=== PATIENT | male | born 1935 | race Caucasian/White ===

== ENCOUNTER 2017-06-08 18:05 | Inpatient (IN) | payer OTHER ==
--- NOTE | 2017-06-08 18:12 | PDOC ---
History of Present Illness - General Stated Complaint: RECTAL BLEEDING Time Seen by Provider: 06/08/17 18:11 - History of Present Illness Initial Comments: 06/08/17 18:30 Mr. 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 He says the first was diarrhea with some blood mixed in but the second was "like someone turned on the faucet" of bright red blood. Mr. Vincent has no other complaints but says he wanted to get checked out. The patient denies chest pain, shortness of breath, headache and dizziness. Denies fever, chills, nausea, vomit, diarrhea and constipation. Denies dysuria, frequency, urgency and hematuria. Allergies: NKDA Past History - Past Medical History Allergies/Adverse Reactions: Allergies Allergy/AdvReac Type Severity Reaction Status Date / Time No Known Allergies Allergy Verified 06/08/17 19:22 Home Medications: Ambulatory Orders Aspirin/Dipyridamole [Aggrenox -] 1 combo PO BID 06/08/17 Atorvastatin Ca [Lipitor] 10 mg PO HS 06/08/17 Ramipril 5 mg PO DAILY 06/08/17 Review of Systems - Review of Systems Comments:: 06/08/17 18:44 GENERAL/CONSTITUTIONAL: No fever or chills. No weakness. HEAD, EYES, EARS, NOSE AND THROAT: No change in vision. No ear pain or discharge. No sore throat. CARDIOVASCULAR: No chest pain or shortness of breath RESPIRATORY: No cough, wheezing, or hemoptysis. GASTROINTESTINAL: +Diarrhea as described with kari blood noted in toilet and upon wiping. GENITOURINARY: No dysuria, frequency, or change in urination. MUSCULOSKELETAL: No joint or muscle swelling or pain. No neck or back pain. SKIN: No rash NEUROLOGIC: No headache, vertigo, loss of consciousness, or change in strength/ sensation. ENDOCRINE: No increased thirst. No abnormal weight change HEMATOLOGIC/LYMPHATIC: No anemia, easy bleeding, or history of blood clots. ALLERGIC/IMMUNOLOGIC: No hives or skin allergy. *Physical Exam - Physical Exam Comments: 06/08/17 18:44 GENERAL: Awake, alert, and fully oriented, in no acute distress HEAD: No signs of trauma, normocephalic, atraumatic EYES: PERRLA, EOMI, sclera anicteric, conjunctiva clear ENT: Auricles normal inspection, hearing grossly normal, nares patent, oropharynx clear without exudates. Moist mucosa NECK: Normal ROM, supple, no lymphadenopathy, JVD, or masses LUNGS: No distress, speaks full sentences, clear to auscultation bilaterally HEART: Regular rate and rhythm, normal S1 and S2, no murmurs, rubs or gallops, peripheral pulses normal and equal bilaterally. ABDOMEN: Soft, nontender, normoactive bowel sounds. No guarding, no rebound. No masses EXTREMITIES: Normal inspection, Normal range of motion, no edema. No clubbing or cyanosis. NEUROLOGICAL: Cranial nerves II through XII grossly intact. Normal speech, normal gait, no focal sensorimotor deficits SKIN: Warm, Dry, normal turgor, no rashes or lesions noted. RECTAL: +Bright red blood noted on glove after exam. No tenderness or hemorrhoids appreciated. Good rectal tone. ED Treatment Course - LABORATORY CBC & Chemistry Diagram: 06/09/17 19:05 06/09/17 07:00 Medical Decision Making - Medical Decision Making 06/08/17 18:46 Mr. Vincent presents w/ symptoms concerning for GI bleed. Labs sent to evaluate accordingly. Patient signed out to Dr. Green for further care. *DC/Admit/Observation/Transfer Diagnosis at time of Disposition: Rectal bleed - Discharge Dispostion Condition at time of disposition: Guarded Admit: Yes - Referrals - Patient Instructions - Post Discharge Activity
[2017-06-08 18:18] VITALS: BMI 29.2
--- NOTE | 2017-06-08 18:29 | PDOC ---
Attending Attestation - Resident Resident Name: Yan Jose - ED Attending Attestation I have performed the following: I have examined & evaluated the patient, The case was reviewed & discussed with the resident, I agree w/resident's findings & plan, Exceptions are as noted - HPI HPI: 06/08/17 18:35 81y M hx of htn, hl, cva on aggrenox presents with 2 episodes of BM with kari blood. No abdominal pain, n/v, f/c, cp, sob, jefferson. no prior episodes of rectal bleeding. last colonscopy >10 yrs ago on exam vitals noted for mild tachycardia abd soft nontender rectal exam noted for red blood that is guaiac positive, no noted hemorroids differential includes diverticular bleeding, LGIB, consider briskg GIB, however pt without hx of ulcers, no risk factors - Physicial Exam PE: 06/15/17 16:40 see above - Medical Decision Making 06/09/17 00:26 pt had a large bloody bm here vitals the same awaiting CT, suspect diverticular bleed will admit for further management due to persistent GIB and being on a/c 06/09/17 01:07 ct cw diverticlosis will admit for further management PMD is dr theodore. will admit to hospitalist service as they are covering [place] 06/09/17 01:[address] lynn agree with admission pending repeat cbc - if crit drops significantly or pts vitals unstable consider ICU admission - otherwis stable for med/surg Heart Score/ECG Review - ECG Impressions Comment:: 06/09/17 01:33 Twelve-lead EKG was performed and reviewed by me. There is normal sinus rhythm with a normal rate. Rate is 78 Left axis deviation First degree AV block
[2017-06-08 19:05] LABS: BASO % 0.5 % (0-2.0); EOS % 1.3 % (0-4.5); HEMATOCRIT 39.6 % (35.4-49); HEMOGLOBIN 13.3 GM/dL (11.7-16.9); LYMPH % 21.4 % (8-40); MCH 32.9 pg (25.7-33.7); MCHC 33.6 g/dl (32.0-35.9); MEAN PLT VOLUME 8.3 fl (7.5-11.1); NEUT % 69.8 % (42.8-82.8); PLATELET COUNT 168 K/MM3 (134-434); RBC 4.04 M/mm3 (4.00-5.60); WHITE BLOOD COUNT 7.7 K/mm3 (4.0-10.0)
[2017-06-08] MEDS ORDERED: ONDANSETRON 4 MG/2 ML VIAL IVPUSH ONE (19:12)
[2017-06-08 19:16] LABS: INR 0.99 (0.82-1.09); PROTHROMBIN TIME (PATIENT) 11.2 SEC (9.98-11.88)
[2017-06-08 19:19] LABS: ACTIVATED PTT 27.3 SECONDS (26.9-34.4)
[2017-06-08 19:27] LABS: ALBUMIN 3.7 g/dl (3.4-5.0); ALK PHOS 93 U/L (45-117); ANION GAP 5 (8-16); BILIRUBIN,TOTAL 0.4 mg/dL (0.2-1.0); BLOOD UREA NITROGEN 27 mg/dL (7-18); CALCIUM 8.4 mg/dL (8.5-10.1); CHLORIDE 109 mmol/L (98-107); CO2 25 mmol/L (21-32); CREATININE 1.1 mg/dL (0.7-1.3); GLUCOSE,RANDOM 169 mg/dL (74-106); POTASSIUM 4.7 mmol/L (3.5-5.1); SGOT/AST 11 U/L (15-37); SGPT/ALT 21 U/L (12-78); SODIUM 139 mmol/L (136-145); TOT PROT 6.3 g/dl (6.4-8.2)
--- NOTE | 2017-06-08 23:54 | PDOC ---
*Physical Exam - Vital Signs Last Vital Signs Temp Pulse Resp BP Pulse Ox 98.3 F 74 18 115/74 97 06/08/17 18:15 06/08/17 22:04 06/08/17 22:04 06/08/17 22:04 06/08/17 19:46 <Sandra Green - Last Filed: 06/08/17 23:52> - Vital Signs Last Vital Signs Temp Pulse Resp BP Pulse Ox 98.3 F 74 18 115/74 97 06/08/17 18:15 06/08/17 22:04 06/08/17 22:04 06/08/17 22:04 06/08/17 19:46 <Lauri Kennedy - Last Filed: 06/09/17 01:17> ED Treatment Course - LABORATORY CBC & Chemistry Diagram: 06/08/17 18:55 06/08/17 18:55 - ADDITIONAL ORDERS Additional order review: Laboratory Results 06/08/17 06/08/17 06/08/17 18:55 18:55 18:55 PT with INR 11.20 INR 0.99 PTT (Actin FS) 27.3 Sodium 139 Potassium 4.7 Chloride 109 H Carbon Dioxide 25 Anion Gap 5 L BUN 27 H Creatinine 1.1 Creat Clearance w eGFR > 60 Random Glucose 169 H Calcium 8.4 L Total Bilirubin 0.4 AST 11 L ALT 21 Alkaline Phosphatase 93 Total Protein 6.3 L Albumin 3.7 Stool Occult Blood Blood Type O POSITIVE Antibody Screen Negative 06/08/17 18:29 PT with INR INR PTT (Actin FS) Sodium Potassium Chloride Carbon Dioxide Anion Gap BUN Creatinine Creat Clearance w eGFR Random Glucose Calcium Total Bilirubin AST ALT Alkaline Phosphatase Total Protein Albumin Stool Occult Blood Positive Blood Type Antibody Screen 06/08/17 18:55 RBC 4.04 MCV 98.0 H MCHC 33.6 RDW 13.0 MPV 8.3 Neutrophils % 69.8 Lymphocytes % 21.4 Monocytes % 7.0 Eosinophils % 1.3 Basophils % 0.5 - RADIOLOGY Radiology Studies Ordered: Category Date Time Status ABDOMEN & PELVIS CT WITH CONTR [CT] Stat CT Scan 06/08/17 19:46 Ordered - Medications Given in the ED: ED Medications Discontinued Medications Generic Name Dose Route Start Last Admin Trade Name Freq PRN Reason Stop Dose Admin Ondansetron HCl 4 mg 06/08/17 19:12 06/08/17 19:21 Zofran Injection IVPUSH 06/08/17 19:13 4 mg ONCE ONE Administration <Sandra Green - Last Filed: 06/08/17 23:52> - LABORATORY CBC & Chemistry Diagram: 06/08/17 18:55 06/08/17 18:55 - ADDITIONAL ORDERS Additional order review: Laboratory Results 06/08/17 06/08/17 06/08/17 18:55 18:55 18:55 PT with INR 11.20 INR 0.99 PTT (Actin FS) 27.3 Sodium 139 Potassium 4.7 Chloride 109 H Carbon Dioxide 25 Anion Gap 5 L BUN 27 H Creatinine 1.1 Creat Clearance w eGFR > 60 Random Glucose 169 H Calcium 8.4 L Total Bilirubin 0.4 AST 11 L ALT 21 Alkaline Phosphatase 93 Total Protein 6.3 L Albumin 3.7 Stool Occult Blood Blood Type O POSITIVE Antibody Screen Negative 06/08/17 18:29 PT with INR INR PTT (Actin FS) Sodium Potassium Chloride Carbon Dioxide Anion Gap BUN Creatinine Creat Clearance w eGFR Random Glucose Calcium Total Bilirubin AST ALT Alkaline Phosphatase Total Protein Albumin Stool Occult Blood Positive Blood Type Antibody Screen 06/09/17 06/08/17 00:30 18:55 RBC Cancelled 4.04 MCV Cancelled 98.0 H MCHC Cancelled 33.6 RDW Cancelled 13.0 MPV Cancelled 8.3 Neutrophils % Cancelled 69.8 Lymphocytes % Cancelled 21.4 Monocytes % Cancelled 7.0 Eosinophils % Cancelled 1.3 Basophils % Cancelled 0.5 - Medications Given in the ED: ED Medications Discontinued Medications Generic Name Dose Route Start Last Admin Trade Name Freq PRN Reason Stop Dose Admin Ondansetron HCl 4 mg 06/08/17 19:12 06/08/17 19:21 Zofran Injection IVPUSH 06/08/17 19:13 4 mg ONCE ONE Administration <Lauri Kennedy - Last Filed: 06/09/17 01:17> Medical Decision Making - Medical Decision Making Patient signed out to me in stable condition. Had another episode of kari bloody bowel movement. Will repeat CBC and get a CT abdomen pelvis with rectal, po, and IV conrast to evaluate for diverticulitis/ diverticulosis. Patient signed out to Dr. Kennedy in stable condition with VSS. 06/08/17 23:52 <Sandra Green - Last Filed: 06/08/17 23:52> *DC/Admit/Observation/Transfer <Sandra Green - Last Filed: 06/08/17 23:52> - Discharge Dispostion Admit: Yes <Lauri Kennedy - Last Filed: 06/09/17 01:17> Diagnosis at time of Disposition: Rectal bleed - Discharge Dispostion Condition at time of disposition: Guarded - Referrals Referrals: Antonio Johnson MD [Primary Care Provider] - - Patient Instructions - Post Discharge Activity
[2017-06-09 01:37] LABS: BASO % 0.2 % (0-2.0); EOS % 0.2 % (0-4.5); HEMATOCRIT 36.3 % (35.4-49); HEMOGLOBIN 12.3 GM/dL (11.7-16.9); LYMPH % 20.5 % (8-40); MCH 32.9 pg (25.7-33.7); MEAN CELL VOLUME 96.8 fl (80-96); MONO % 8.2 % (3.8-10.2); NEUT % 70.9 % (42.8-82.8); PLATELET COUNT 156 K/MM3 (134-434); RBC 3.75 M/mm3 (4.00-5.60); RDW 12.7 % (11.9-15.9); WHITE BLOOD COUNT 7.7 K/mm3 (4.0-10.0)
[2017-06-09] MEDS ORDERED: ACETAMINOPHEN 325 MG TABLET (FP) PO ONE (01:40)
[2017-06-09] MEDS ORDERED: ONDANSETRON 4 MG/2 ML VIAL IVPB PRN (01:40)
--- NOTE | 2017-06-09 01:41 | HP ---
Admitting History and Physical - Admission Chief Complaint: GIB History of Present Illness: 81 yo male w/ pmh of HTN, HLD, and prior TIA/strokes (3, last in 2006 - minimal left sided deficit with slightly decreased dexterity of hand) currently on Aggrenox who presents c/o 2 episodes of kari bloody diarrhea at around 1730 today. he He reports having a total of 3 BRBPR. 1 episode in the ER and 2 at home. he denies tarry stools at home. he states hx of small non-bleeding hemorrhoid in the past. he reports last colonoscopy/endoscopy in 2005 with 2 polyps removed, diverticulitis and gastritis. he denies sob, CP, heart palps, nausea, vomiting, diarrhea, fevers, chills PMH/PSH-HTN, HLD, basal cell cancer s/p removal, and prior TIA/strokes (3, last in 2006 - minimal left sided deficit with slightly decreased dexterity of hand) Social- Former smoker. Denies recreational drug use famx-MI PCP- dr. Johnson Ros neg except for HPI Pex General- in no acute distress, alert Hent- at/nc, alisa, neck supple, trachea midline Resp- lungs ctab, no cough, no ronchi, no rales Cards- s1s2 heard, no JVD, RRR GI- Non-tender, no guarding, no rebound, no rigidity, BS + Musk- normal arom bue/ble, no back pain Skin- no erythema Neuro- cn2-12grossly intact, no facial droop, eomi Psych- cooperative,no agitation Prob list GIB HTN HLp hx of TIA with minimal left side deficit A/P- 81 yo male w/ pmh of HTN, HLD, and prior TIA/strokes (3, last in 2006 - minimal left sided deficit with slightly decreased dexterity of hand) currently on Aggrenox who presents c/o 2 episodes of kari bloody diarrhea at around 1730 today and found to have diverticulosis... 1. GIB on Aggrenox- CTAP shows mild sigmoid diverticulosis w/out diverticulitis. H/H stable. IV PPI, GI consult pending. NPO 2. HTN- Stable. hold B/P meds in setting of GIB 3. Hx of TIA - on Aggrenox. will hold 2/2 GIB 4. HLp- hold statin until able to eat DVT prophys scd, oob, hold chemoprophylaxis 2/2 GIB FEN IVF NS 75cc/hr, NPO Dispo-requires > 2mn stay for GIB History Source: Patient Limitations to Obtaining History: No Limitations - Smoking History Smoking history: Former smoker Have you smoked in the past 12 months: No - Alcohol/Substance Use Hx Alcohol Use: No Home Medications - Allergies Allergies/Adverse Reactions: Allergies Allergy/AdvReac Type Severity Reaction Status Date / Time No Known Allergies Allergy Verified 06/08/17 19:22 - Home Medications Home Medications: Ambulatory Orders Aspirin/Dipyridamole [Aggrenox -] 1 combo PO BID 06/08/17 Atorvastatin Ca [Lipitor] 10 mg PO HS 06/08/17 Ramipril 5 mg PO DAILY 06/08/17 Physical Examination Vital Signs: Vital Signs Temperature 98.3 F 06/08/17 18:15 Pulse Rate 74 06/08/17 22:04 Respiratory Rate 18 06/08/17 22:04 Blood Pressure 115/74 06/08/17 22:04 O2 Sat by Pulse Oximetry (%) 97 06/09/17 01:36 Labs: CBC, BMP 06/08/17 18:55 Visit type - Emergency Visit Emergency Visit: Yes ED Registration Date: 06/09/17 Care time: The patient presented to the Emergency Department on the above date and was hospitalized for further evaluation of their emergent condition. - New Patient This patient is new to me today: Yes Date on this admission: 06/10/17 - Critical Care Critical Care patient: No
[2017-06-09] MEDS ORDERED: PANTOPRAZOLE SODIUM 40 MG/100 ML BAG IVPB ONE (01:54)
[2017-06-09] MEDS: PANTOPRAZOLE SODIUM 40 MG VIAL IVPUSH SCH ×3 (02:02→22:09)
[2017-06-09] MEDS: SODIUM CHLORIDE 1,000 ML IV SCH ×3 (02:02→16:50)
[2017-06-09 07:29] LABS: BASO % 0.5 % (0-2.0); EOS % 0.6 % (0-4.5); HEMATOCRIT 33.1 % (35.4-49); HEMOGLOBIN 11.2 GM/dL (11.7-16.9); MCH 33.1 pg (25.7-33.7); MCHC 33.9 g/dl (32.0-35.9); MEAN CELL VOLUME 97.7 fl (80-96); MONO % 9.5 % (3.8-10.2); NEUT % 58.4 % (42.8-82.8); PLATELET COUNT 142 K/MM3 (134-434); RBC 3.39 M/mm3 (4.00-5.60); RDW 12.7 % (11.9-15.9)
[2017-06-09 07:39] LABS: INR 1.12 (0.82-1.09); PROTHROMBIN TIME (PATIENT) 12.6 SEC (9.98-11.88)
[2017-06-09 07:50] LABS: ALBUMIN 3.2 g/dl (3.4-5.0); ALK PHOS 60 U/L (45-117); ANION GAP 8 (8-16); BILIRUBIN,TOTAL 0.7 mg/dL (0.2-1.0); BLOOD UREA NITROGEN 19 mg/dL (7-18); CALCIUM 8.5 mg/dL (8.5-10.1); CHLORIDE 108 mmol/L (98-107); CO2 25 mmol/L (21-32); GLUCOSE,RANDOM 126 mg/dL (74-106); POTASSIUM 4.1 mmol/L (3.5-5.1); SGOT/AST 11 U/L (15-37); SGPT/ALT 17 U/L (12-78); SODIUM 141 mmol/L (136-145); TOT PROT 5.3 g/dl (6.4-8.2)
--- NOTE | 2017-06-09 08:47 | EKG ---
Test Reason : Blood Pressure : / mmHG Vent. Rate : 078 BPM Atrial Rate : 078 BPM P-R Int : 214 ms QRS Dur : 098 ms QT Int : 408 ms P-R-T Axes : 011 -43 023 degrees QTc Int : 465 ms SINUS RHYTHM WITH 1ST DEGREE A-V BLOCK LEFT AXIS DEVIATION ABNORMAL ECG WHEN COMPARED WITH ECG OF 01-MAY-2010 15:34, ST NOW DEPRESSED IN ANTERIOR LEADS Confirmed by OCTAVIANO GREGORY, ALISE ([id number]) on 06/09/2017 8:47:24 AM Referred By: Confirmed By:ALISE BRUMFIELD MD
--- NOTE | 2017-06-09 14:56 | CON.GI ---
Consult Consult Specialty:: GI - History of Present Illness History of Present Illness: Covering for Dr. Lancaster until Saturday morning Chart reviewed. An 81 yom with acute onset of hematochezia, with lower abdominal cramping pain w /o nausea, vomiting, fever, chills. No prior episodes of the same. Colonoscopy in 2005 revealed 2 "non-cancerous" polyps, per patient. A CT scan of the abdomen /pelvis w/c on admission revealed sigmoid diverticulosis, no acute findings in abdomen, or pelvis otherwise. The patient had witnessed dark-colored bloody diarrhea this am. Asymptomatic and comfortable at the time of this encounter. - History Source History Provided By: Patient Limitations to Obtaining History: No Limitations - Alcohol/Substance Use Hx Alcohol Use: No - Smoking History Smoking history: Former smoker Have you smoked in the past 12 months: No Aproximately how many cigarettes per day: 10 If you are a former smoker, when did you quit?: 50 years ago Home Medications - Allergies Allergies/Adverse Reactions: Allergies Allergy/AdvReac Type Severity Reaction Status Date / Time No Known Allergies Allergy Verified 06/08/17 19:22 - Home Medications Home Medications: Ambulatory Orders Aspirin/Dipyridamole [Aggrenox -] 1 combo PO BID 06/08/17 Atorvastatin Ca [Lipitor] 10 mg PO HS 06/08/17 Ramipril 5 mg PO DAILY 06/08/17 Family Disease History - Family Disease History Family History: Unremarkable (non-contributing) Review of Systems Findings/Remarks: please refer to H&P Physical Exam-GI Vital Signs: Vital Signs Temperature 98.7 F 06/09/17 09:47 Pulse Rate 103 H 06/09/17 14:34 Respiratory Rate 24 06/09/17 14:34 Blood Pressure 129/59 06/09/17 14:34 O2 Sat by Pulse Oximetry (%) 96 06/09/17 03:35 Constitutional: Yes: Well Nourished, No Distress, Calm Eyes: Yes: Conjunctiva Clear HENT: Yes: Atraumatic Neck: Yes: Supple Cardiovascular: Yes: Regular Rate and Rhythm Respiratory: Yes: Regular Gastrointestinal Inspection: No: Ascites, Distention ...Auscultate: Yes: Normoactive Bowel Sounds ...Palpate: Yes: Soft. No: Firm/Rigid, Guarding, Mass, Pulsatile Mass, Tenderness, Tenderness, Epigastium, Tenderness, Rebound ...Percussion: No: Fluid Wave ...Rectal Exam: Yes: Other (bloody stools) Neurological: Yes: Alert, Oriented Labs: CBC, BMP 06/09/17 07:00 06/09/17 07:00 INR, PTT INR 1.12 (0.82-1.09) 06/09/17 07:00 Abnormal Lab Results 06/08/17 06/08/17 06/09/17 18:55 18:55 01:30 RBC 3.75 L Hgb Hct MCV 98.0 H 96.8 H PT with INR Chloride 109 H Anion Gap 5 L BUN 27 H Random Glucose 169 H Calcium 8.4 L AST 11 L Total Protein 6.3 L Albumin 06/09/17 06/09/17 06/09/17 07:00 07:00 07:00 RBC 3.39 L Hgb 11.2 L Hct 33.1 L MCV 97.7 H PT with INR 12.60 H Chloride 108 H Anion Gap BUN 19 H D Random Glucose 126 H D Calcium AST 11 L Total Protein 5.3 L Albumin 3.2 L Laboratory Results - last 24 hr 06/08/17 06/08/17 06/08/17 18:29 18:55 18:55 WBC 7.7 Corrected WBC (auto) RBC 4.04 Hgb 13.3 Hct 39.6 MCV 98.0 H MCH 32.9 MCHC 33.6 RDW 13.0 Plt Count 168 MPV 8.3 Neutrophils % 69.8 Lymphocytes % 21.4 Monocytes % 7.0 Eosinophils % 1.3 Basophils % 0.5 Platelet Comment PT with INR 11.20 INR 0.99 PTT (Actin FS) 27.3 Sodium Potassium Chloride Carbon Dioxide Anion Gap BUN Creatinine Creat Clearance w eGFR Random Glucose Calcium Total Bilirubin AST ALT Alkaline Phosphatase Total Protein Albumin Stool Occult Blood Positive Blood Type Antibody Screen 06/08/17 06/08/17 06/09/17 18:55 18:55 00:30 WBC Cancelled Corrected WBC (auto) Cancelled RBC Cancelled Hgb Cancelled Hct Cancelled MCV Cancelled MCH Cancelled MCHC Cancelled RDW Cancelled Plt Count Cancelled MPV Cancelled Neutrophils % Cancelled Lymphocytes % Cancelled Monocytes % Cancelled Eosinophils % Cancelled Basophils % Cancelled Platelet Comment Cancelled PT with INR INR PTT (Actin FS) Sodium 139 Potassium 4.7 Chloride 109 H Carbon Dioxide 25 Anion Gap 5 L BUN 27 H Creatinine 1.1 Creat Clearance w eGFR > 60 Random Glucose 169 H Calcium 8.4 L Total Bilirubin 0.4 AST 11 L ALT 21 Alkaline Phosphatase 93 Total Protein 6.3 L Albumin 3.7 Stool Occult Blood Blood Type O POSITIVE Antibody Screen Negative 06/09/17 06/09/17 06/09/17 01:30 01:30 07:00 WBC 7.7 8.0 Corrected WBC (auto) RBC 3.75 L 3.39 L Hgb 12.3 11.2 L Hct 36.3 33.1 L MCV 96.8 H 97.7 H MCH 32.9 33.1 MCHC 34.0 33.9 RDW 12.7 12.7 Plt Count 156 142 MPV 8.0 8.0 Neutrophils % 70.9 58.4 Lymphocytes % 20.5 31.0 D Monocytes % 8.2 9.5 Eosinophils % 0.2 D 0.6 D Basophils % 0.2 0.5 Platelet Comment PT with INR INR PTT (Actin FS) Sodium Potassium Chloride Carbon Dioxide Anion Gap BUN Creatinine Creat Clearance w eGFR Random Glucose Calcium Total Bilirubin AST ALT Alkaline Phosphatase Total Protein Albumin Stool Occult Blood Blood Type O POSITIVE Antibody Screen Negative 06/09/17 06/09/17 07:00 07:00 WBC Corrected WBC (auto) RBC Hgb Hct MCV MCH MCHC RDW Plt Count MPV Neutrophils % Lymphocytes % Monocytes % Eosinophils % Basophils % Platelet Comment PT with INR 12.60 H INR 1.12 PTT (Actin FS) Sodium 141 Potassium 4.1 Chloride 108 H Carbon Dioxide 25 Anion Gap 8 BUN 19 H D Creatinine 1.0 Creat Clearance w eGFR > 60 Random Glucose 126 H D Calcium 8.5 Total Bilirubin 0.7 D AST 11 L ALT 17 Alkaline Phosphatase 60 D Total Protein 5.3 L Albumin 3.2 L Stool Occult Blood Blood Type Antibody Screen Imaging - Results Cat Scan: Report Reviewed Problem List - Problems (1) Hematochezia Code(s): K92.1 - MELENA (2) Diverticulosis Code(s): K57.90 - DVRTCLOS OF INTEST, PART UNSP, W/O PERF OR ABSCESS W/O BLEED Assessment/Plan Diverticular bleed. R/o neoplasm. No hemodynamic issues. Do not suspect upper GI bleeding at this time Close monitoring for worsening bleeding Stop ASA unless obsoletely contraindicated Prep for colonoscopy Discussed with the patient and his daughter at bedside
--- NOTE | 2017-06-09 15:03 | HOSP ---
Subjective - Review of Symptoms Events since last encounter: Summoned by RN Deepa Zacarias. Patient has had three episodes of bleeding from rectum. Dark red blood with clots. Patient became weak and clammy after the last episode and was helped back to bed. Patient states he feels weak. Last colonoscopy 2005. Physical Exam Vitals: BP 124/67 p94 EENT: pale conjunctiva General: pale Neuro: A&Ox3 Pulm: CTA CV: S1, S2, RRR Ext: 2+ pulses, warm, well-perfused, no edema Skin: pale, warm, dry Plan 1. stat cbc 2. continue IV fluids 3. continue to hold aggrenox 4. continue Protonix BID 5. Dr. Tse aware Physical Examination Vital Signs: Vital Signs Temperature 98.7 F 06/09/17 09:47 Pulse Rate 103 H 06/09/17 14:34 Respiratory Rate 24 06/09/17 14:34 Blood Pressure 129/59 06/09/17 14:34 O2 Sat by Pulse Oximetry (%) 96 06/09/17 03:35 Labs: CBC, BMP 06/09/17 07:00 06/09/17 07:00
[2017-06-09] MEDS ORDERED: PEG 3350/NA SULF BICARB CL/KCL 4000 ML SOLN.RECON PO ONE ×2 (15:10→18:00)
[2017-06-09] MEDS ORDERED: BISACODYL 5 MG TABLET.DR (FP) PO ONE (15:10)
[2017-06-09 15:28] LABS: BASO % 0.3 % (0-2.0); EOS % 0.6 % (0-4.5); HEMATOCRIT 29.6 % (35.4-49); HEMOGLOBIN 9.9 GM/dL (11.7-16.9); LYMPH % 17.2 % (8-40); MCH 32.6 pg (25.7-33.7); MCHC 33.5 g/dl (32.0-35.9); MEAN CELL VOLUME 97.4 fl (80-96); MEAN PLT VOLUME 7.8 fl (7.5-11.1); MONO % 7.4 % (3.8-10.2); NEUT % 74.5 % (42.8-82.8); PLATELET COUNT 139 K/MM3 (134-434); RBC 3.04 M/mm3 (4.00-5.60); RDW 12.7 % (11.9-15.9); WHITE BLOOD COUNT 9.8 K/mm3 (4.0-10.0)
[2017-06-09] MEDS: RAMIPRIL 5 MG CAPSULE (FP) PO SCH (15:42)
[2017-06-09] MEDS: ACETAMINOPHEN 325 MG TABLET (FP) PO PRN (16:17)
[2017-06-09 19:21] LABS: HEMATOCRIT 27.3 % (35.4-49); HEMOGLOBIN 9.2 GM/dL (11.7-16.9); MCH 32.8 pg (25.7-33.7); MCHC 33.8 g/dl (32.0-35.9); MEAN CELL VOLUME 97.1 fl (80-96); MEAN PLT VOLUME 8.3 fl (7.5-11.1); PLATELET COUNT 153 K/MM3 (134-434); RBC 2.81 M/mm3 (4.00-5.60); RDW 12.9 % (11.9-15.9); WHITE BLOOD COUNT 9.5 K/mm3 (4.0-10.0)
[2017-06-09] MEDS: ATORVASTATIN CA 10 MG TABLET (FP) PO SCH (22:09)
[2017-06-10] MEDS: SODIUM CHLORIDE 1,000 ML IV SCH ×3 (00:29→18:44)
[2017-06-10] MEDS ORDERED: PT OWN MED DRAWER 7, Y5N ONE (06:13)
[2017-06-10 07:29] LABS: BASO % 0.3 % (0-2.0); HEMATOCRIT 22.3 % (35.4-49); HEMOGLOBIN 7.6 GM/dL (11.7-16.9); LYMPH % 22.8 % (8-40); MCH 33.1 pg (25.7-33.7); MEAN CELL VOLUME 97.4 fl (80-96); MEAN PLT VOLUME 8.5 fl (7.5-11.1); MONO % 7.8 % (3.8-10.2); NEUT % 69.1 % (42.8-82.8); PLATELET COUNT 139 K/MM3 (134-434); RBC 2.29 M/mm3 (4.00-5.60); RDW 12.9 % (11.9-15.9); WHITE BLOOD COUNT 8.2 K/mm3 (4.0-10.0)
[2017-06-10 07:43] LABS: ALBUMIN 2.7 g/dl (3.4-5.0); ALK PHOS 44 U/L (45-117); ANION GAP 5 (8-16); BILIRUBIN,TOTAL 0.5 mg/dL (0.2-1.0); BLOOD UREA NITROGEN 18 mg/dL (7-18); CALCIUM 7.4 mg/dL (8.5-10.1); CHLORIDE 110 mmol/L (98-107); CO2 26 mmol/L (21-32); GLUCOSE,RANDOM 162 mg/dL (74-106); POTASSIUM 4.6 mmol/L (3.5-5.1); SGOT/AST 9 U/L (15-37); SGPT/ALT 15 U/L (12-78); SODIUM 141 mmol/L (136-145); TOT PROT 4.6 g/dl (6.4-8.2)
[2017-06-10] MEDS ORDERED: PROPOFOL 20 ML ONE ×4 (09:54)
--- NOTE | 2017-06-10 10:55 | PN ---
Progress Note (short form) - Note Progress Note: GI Procedure NOte: Please see colonoscopy report. Bleeding is felt to be diverticular and from the distal (left) half of the colon in origin. Multiple polyps removed and endoclipped given recent Aggranox. Hb has dropped below 8. Will transfuse 1 unit PRBCs.
[2017-06-10] MEDS: RAMIPRIL 5 MG CAPSULE (FP) PO SCH (11:54)
[2017-06-10] MEDS: PANTOPRAZOLE SODIUM 40 MG VIAL IVPUSH SCH ×2 (11:55→22:09)
--- NOTE | 2017-06-10 15:05 | PN ---
Progress Note, Physician Chief Complaint: Mr Vincent is without complaint. Denies cp, sob, n/v. s/p colonoscopy. - Current Medication List Current Medications: Active Medications Acetaminophen (Tylenol -) 650 mg PO Q6H PRN PRN Reason: FEVER OR PAIN Last Admin: 06/09/17 16:17 Dose: 650 mg Atorvastatin Calcium (Lipitor -) 10 mg PO HS [facility] Last Admin: 06/09/17 22:09 Dose: 10 mg Sodium Chloride (Normal Saline -) 1,000 mls @ 125 mls/hr IV ASDIR [facility] Last Admin: 06/10/17 06:29 Dose: 125 mls/hr Ondansetron HCl (Zofran Injection) 8 mg IVPB Q6H PRN PRN Reason: NAUSEA Pantoprazole Sodium (Protonix Iv) 40 mg IVPUSH BID [facility] Last Admin: 06/10/17 11:55 Dose: 40 mg Ramipril (Altace -) 5 mg PO DAILY [facility] Last Admin: 06/10/17 11:54 Dose: 5 mg - Objective Vital Signs: Vital Signs Temperature 36.6 C 06/10/17 10:39 Pulse Rate 85 06/10/17 11:55 Respiratory Rate 18 06/10/17 11:12 Blood Pressure 120/94 06/10/17 11:55 O2 Sat by Pulse Oximetry (%) 100 06/10/17 11:12 Constitutional: Yes: No Distress, Calm, Obese Cardiovascular: Yes: Regular Rate and Rhythm. No: Gallop, Murmur, Rub Respiratory: Yes: Regular, CTA Bilaterally. No: Rales, Rhonchi, Wheezes Gastrointestinal: Yes: Normal Bowel Sounds, Soft. No: Distention, Tenderness Extremities: Yes: WNL Edema: No Labs: CBC, BMP 06/10/17 06:10 06/10/17 06:10 INR, PTT INR 1.12 (0.82-1.09) 06/09/17 07:00 Problem List - Problems (1) Hematochezia Assessment/Plan: -appreciate GI assistance -s/p colonoscopy, appears to be diverticular bleed -monitor to see if resolved Code(s): K92.1 - MELENA (2) Anemia Assessment/Plan: -secondary to GI bleed -transfusion ordered -follow up in am Code(s): D64.9 - ANEMIA, UNSPECIFIED Qualifiers: Anemia type: other cause Other causes of anemia: acute posthemorrhagic Qualified Code(s): D62 - Acute posthemorrhagic anemia (3) HTN (hypertension) Assessment/Plan: -controlled -continue altace Code(s): I10 - ESSENTIAL (PRIMARY) HYPERTENSION (4) HLD (hyperlipidemia) Assessment/Plan: -continue statin Code(s): E78.5 - HYPERLIPIDEMIA, UNSPECIFIED (5) TIA (transient ischemic attack) Assessment/Plan: -patient with h/o TIA and on aggrenox -will need GI to comment on when it is safe to restart aggrenox Code(s): G45.9 - TRANSIENT CEREBRAL ISCHEMIC ATTACK, UNSPECIFIED
[2017-06-10 19:26] LABS: BASO % 0.3 % (0-2.0); EOS % 0.6 % (0-4.5); HEMATOCRIT 23.4 % (35.4-49); HEMOGLOBIN 7.8 GM/dL (11.7-16.9); LYMPH % 30.8 % (8-40); MCHC 33.3 g/dl (32.0-35.9); MEAN PLT VOLUME 8.5 fl (7.5-11.1); MONO % 10.6 % (3.8-10.2); NEUT % 57.7 % (42.8-82.8); PLATELET COUNT 145 K/MM3 (134-434); RBC 2.44 M/mm3 (4.00-5.60); RDW 14.2 % (11.9-15.9)
[2017-06-10] MEDS: ACETAMINOPHEN 325 MG TABLET (FP) PO PRN (21:06)
[2017-06-10] MEDS: ATORVASTATIN CA 10 MG TABLET (FP) PO SCH (22:06)
[2017-06-11] MEDS: SODIUM CHLORIDE 1,000 ML IV SCH (02:29)
[2017-06-11 03:21] LABS: BASO % 0.2 % (0-2.0); EOS % 1.1 % (0-4.5); HEMATOCRIT 19.3 % (35.4-49); LYMPH % 24.9 % (8-40); MCH 32.4 pg (25.7-33.7); MEAN CELL VOLUME 95.5 fl (80-96); MEAN PLT VOLUME 8.8 fl (7.5-11.1); MONO % 9.6 % (3.8-10.2); NEUT % 64.2 % (42.8-82.8); PLATELET COUNT 106 K/MM3 (134-434); RBC 2.02 M/mm3 (4.00-5.60); RDW 14.5 % (11.9-15.9); WHITE BLOOD COUNT 8.6 K/mm3 (4.0-10.0)
[2017-06-11 03:26] LABS: HEMOGLOBIN 6.6 GM/dL (11.7-16.9)
[2017-06-11] MEDS: ACETAMINOPHEN 325 MG TABLET (FP) PO PRN (09:29)
[2017-06-11 10:53] LABS: BASO % 0.2 % (0-2.0); EOS % 1.6 % (0-4.5); HEMATOCRIT 21.9 % (35.4-49); HEMOGLOBIN 7.5 GM/dL (11.7-16.9); LYMPH % 22.2 % (8-40); MCH 32.4 pg (25.7-33.7); MCHC 34.2 g/dl (32.0-35.9); MEAN CELL VOLUME 94.6 fl (80-96); MEAN PLT VOLUME 7.8 fl (7.5-11.1); MONO % 10.4 % (3.8-10.2); NEUT % 65.6 % (42.8-82.8); PLATELET COUNT 108 K/MM3 (134-434); RBC 2.31 M/mm3 (4.00-5.60); RDW 14.8 % (11.9-15.9)
[2017-06-11] MEDS: RAMIPRIL 5 MG CAPSULE (FP) PO SCH (11:42)
[2017-06-11] MEDS: PANTOPRAZOLE SODIUM 40 MG VIAL IVPUSH SCH ×2 (11:47→21:34)
--- NOTE | 2017-06-11 11:56 | PATH ---
Surgical Pathology Report Patient Name: RAY ROGEL [facility]. Rec. #: [id number] /Age/Gender: 1935 (Age: 81) / M Account: [id number] Location: [address] [place] [address] Taken: 06/10/2017 Received: 06/10/2017 Reported: 06/11/2017 Physicians: Elham Lancaster M.D. Specimen(s) Received A: BX HEPATIC FLEXURE B: CECAL POLYP C: POLYP SIGMOID Clinical History Preoperative diagnosis: GI bleeding Postoperative diagnosis: Colon polyps, diverticulosis Final Diagnosis A. COLON, HEPATIC FLEXURE, POLYPECTOMY: MULTIPLE PORTIONS OF TUBULAR ADENOMA. B. COLON, CECUM, POLYPECTOMY: COLONIC MUCOSA WITH THERMAL ARTIFACT. C. COLON, SIGMOID, POLYPECTOMY: MULTIPLE PORTIONS OF TUBULAR ADENOMA. Comment: Recommend correlation with clinical findings and follow up as clinically indicated. Electronically Signed Delano Stoddard M.D. Gross Description A. Received in formalin, labeled "hepatic flexure polyp" are 3 richardson, irregular to polypoid portions of soft tissue ranging from 0.3-0.6 cm. in greatest dimension. The specimens are submitted in toto in one cassette. B. Received in formalin, labeled "cecal polyp" is a richardson, irregular portion of soft tissue measuring 0.2 cm. in greatest dimension. The specimen is submitted in toto in one cassette. C. Received in formalin, labeled "sigmoid polyp" are 5 richardson, irregular to polypoid portions of soft tissue ranging from 0.4-0.6 cm. in greatest dimension. The specimens are submitted in toto in one cassette. 06/10/2017 [facility]06/10/2017
--- NOTE | 2017-06-11 15:11 | PN ---
Progress Note, Physician Chief Complaint: Mr Vincent is without complaint. Denies cp, sob, n/v. No bowel movement yet. - Current Medication List Current Medications: Active Medications Acetaminophen (Tylenol -) 650 mg PO Q6H PRN PRN Reason: FEVER OR PAIN Last Admin: 06/11/17 09:29 Dose: 650 mg Atorvastatin Calcium (Lipitor -) 10 mg PO HS [facility] Last Admin: 06/10/17 22:06 Dose: 10 mg Ondansetron HCl (Zofran Injection) 8 mg IVPB Q6H PRN PRN Reason: NAUSEA Pantoprazole Sodium (Protonix Iv) 40 mg IVPUSH BID [facility] Last Admin: 06/11/17 11:47 Dose: 40 mg Ramipril (Altace -) 5 mg PO DAILY [facility] Last Admin: 06/11/17 11:42 Dose: 5 mg - Objective Vital Signs: Vital Signs Temperature 37.2 C 06/11/17 13:32 Pulse Rate 85 06/11/17 13:32 Respiratory Rate 20 06/11/17 13:32 Blood Pressure 110/50 06/11/17 13:32 O2 Sat by Pulse Oximetry (%) 100 06/10/17 22:00 Constitutional: Yes: No Distress, Calm, Obese Cardiovascular: Yes: Regular Rate and Rhythm. No: Gallop, Murmur, Rub Respiratory: Yes: Regular, CTA Bilaterally. No: Rales, Rhonchi, Wheezes Gastrointestinal: Yes: Normal Bowel Sounds, Soft. No: Distention, Tenderness Extremities: Yes: WNL Edema: No Labs: CBC, BMP 06/11/17 10:27 06/10/17 06:10 INR, PTT INR 1.12 (0.82-1.09) 06/09/17 07:00 Problem List - Problems (1) Hematochezia Code(s): K92.1 - MELENA (2) Anemia Code(s): D64.9 - ANEMIA, UNSPECIFIED Qualifiers: Anemia type: other cause Other causes of anemia: acute posthemorrhagic Qualified Code(s): D62 - Acute posthemorrhagic anemia (3) HTN (hypertension) Code(s): I10 - ESSENTIAL (PRIMARY) HYPERTENSION (4) HLD (hyperlipidemia) Code(s): E78.5 - HYPERLIPIDEMIA, UNSPECIFIED (5) TIA (transient ischemic attack) Code(s): G45.9 - TRANSIENT CEREBRAL ISCHEMIC ATTACK, UNSPECIFIED Assessment/Plan (1) Hematochezia Assessment/Plan: -case d/w Dr Lancaster -diverticular bleed -start on solid diet, if stable d/c in am Code(s): K92.1 - MELENA (2) Anemia Assessment/Plan: -secondary to GI bleed -s/p 2 units -bleeding appears resolved -recheck in am Code(s): D64.9 - ANEMIA, UNSPECIFIED Qualifiers: Anemia type: other cause Other causes of anemia: acute posthemorrhagic Qualified Code(s): D62 - Acute posthemorrhagic anemia (3) HTN (hypertension) Assessment/Plan: -controlled -continue altace Code(s): I10 - ESSENTIAL (PRIMARY) HYPERTENSION (4) HLD (hyperlipidemia) Assessment/Plan: -continue statin Code(s): E78.5 - HYPERLIPIDEMIA, UNSPECIFIED (5) TIA (transient ischemic attack) Assessment/Plan: -hold aggrenox for 10 days secondary to polyp removal Code(s): G45.9 - TRANSIENT CEREBRAL ISCHEMIC ATTACK, UNSPECIFIED Dispo -plan for discharge tomorrow
--- NOTE | 2017-06-11 18:59 | PN ---
GI Progress Note Subjective: GI NOte: Denies any hematochezia since the colonoscopy but Hb dropped to 6.6 today after my 1st unit of blood and despite another his Hb is still < 8gms. Having solids for dinner. Discussed case with Dr. Anne tse and advised keeping Leo overnight. Will transfuse another unit of PRBCs given his age. - Objective Vital Signs: Vital Signs Temperature 98.3 F 06/11/17 18:00 Pulse Rate 63 06/11/17 18:00 Respiratory Rate 20 06/11/17 18:00 Blood Pressure 124/64 06/11/17 18:00 O2 Sat by Pulse Oximetry (%) 100 06/10/17 22:00 Laboratory Tests 06/09/17 06/10/17 06/10/17 15:22 06:10 06:10 Hgb 9.9 L D 7.6 L D BUN 18 Creatinine 1.0 Albumin 2.7 L 06/10/17 06/11/17 06/11/17 18:00 02:01 10:27 Hgb 7.8 L 6.6 L* D 7.5 L D BUN Creatinine Albumin Constitutional: No Distress Cardiovascular: Yes: Regular Rate and Rhythm Respiratory: Yes: CTA Bilaterally ...Auscultate: Yes: Normoactive Bowel Sounds ...Palpate: Yes: Soft, Other (nontender) Labs: CBC, BMP 06/11/17 10:27 06/10/17 06:10 INR, PTT INR 1.12 (0.82-1.09) 06/09/17 07:00 Problem List - Problems (1) Diverticular hemorrhage Assessment/Plan: Continue to suspect diverticular hemorrhage which is resolved or resolving. Will need to watch for rebleeding on the solid diet. I have advised that Aggranox not be resumed for at least 10 days. Will give another unit of PRBCs tonight Code(s): K57.31 - DVRTCLOS OF LG INT W/O PERFORATION OR ABSCESS W BLEEDING (2) Colon polyps Assessment/Plan: Two of the three polyps are adenomas Code(s): K63.5 - POLYP OF COLON
[2017-06-11] MEDS: ATORVASTATIN CA 10 MG TABLET (FP) PO SCH (21:34)
[2017-06-12 07:40] LABS: BASO % 0.4 % (0-2.0); EOS % 3.2 % (0-4.5); HEMATOCRIT 23.2 % (35.4-49); HEMOGLOBIN 7.9 GM/dL (11.7-16.9); LYMPH % 30.7 % (8-40); MCH 31.9 pg (25.7-33.7); MCHC 33.9 g/dl (32.0-35.9); MEAN CELL VOLUME 94.2 fl (80-96); MEAN PLT VOLUME 7.8 fl (7.5-11.1); MONO % 11.1 % (3.8-10.2); NEUT % 54.6 % (42.8-82.8); PLATELET COUNT 111 K/MM3 (134-434); RBC 2.46 M/mm3 (4.00-5.60); RDW 15.5 % (11.9-15.9); WHITE BLOOD COUNT 6.5 K/mm3 (4.0-10.0)
[2017-06-12] MEDS: PANTOPRAZOLE SODIUM 40 MG VIAL IVPUSH SCH ×2 (10:25→21:41)
[2017-06-12] MEDS: RAMIPRIL 5 MG CAPSULE (FP) PO SCH (10:25)
--- NOTE | 2017-06-12 11:18 | PN ---
GI Progress Note Subjective: GI NOte: Had a brown BM with a red tinge. Hb only 7.9. Advised further observation for rebleeding. - Objective Vital Signs: Vital Signs Temperature 98.3 F 06/12/17 10:23 Pulse Rate 64 06/12/17 10:23 Respiratory Rate 20 06/12/17 10:23 Blood Pressure 112/53 06/12/17 10:23 O2 Sat by Pulse Oximetry (%) 97 06/11/17 22:00 ...Auscultate: Yes: Normoactive Bowel Sounds ...Palpate: Yes: Other (nontender) Labs: CBC, BMP 06/12/17 06:35 06/10/17 06:10 INR, PTT INR 1.12 (0.82-1.09) 06/09/17 07:00 Problem List - Problems (1) Diverticular hemorrhage Assessment/Plan: Suspect diverticular hemorrhage which is resolved or resolving. Will need to watch for rebleeding for at least another [address] Rodríguez. Code(s): K57.31 - DVRTCLOS OF LG INT W/O PERFORATION OR ABSCESS W BLEEDING (2) Colon polyps Code(s): K63.5 - POLYP OF COLON
--- NOTE | 2017-06-12 14:24 | PN ---
Progress Note, Physician Chief Complaint: Mr Vincent is without complaint. Denies cp, sob, n/v. Small bowel movement with streaks of blood. - Current Medication List Current Medications: Active Medications Acetaminophen (Tylenol -) 650 mg PO Q6H PRN PRN Reason: FEVER OR PAIN Last Admin: 06/11/17 09:29 Dose: 650 mg Atorvastatin Calcium (Lipitor -) 10 mg PO HS [facility] Last Admin: 06/11/17 21:34 Dose: 10 mg Ondansetron HCl (Zofran Injection) 8 mg IVPB Q6H PRN PRN Reason: NAUSEA Pantoprazole Sodium (Protonix Iv) 40 mg IVPUSH BID [facility] Last Admin: 06/12/17 10:25 Dose: 40 mg Ramipril (Altace -) 5 mg PO DAILY [facility] Last Admin: 06/12/17 10:25 Dose: 5 mg - Objective Vital Signs: Vital Signs Temperature 36.9 C 06/12/17 14:07 Pulse Rate 67 06/12/17 14:07 Respiratory Rate 20 06/12/17 10:23 Blood Pressure 105/47 06/12/17 14:07 O2 Sat by Pulse Oximetry (%) 97 06/11/17 22:00 Constitutional: Yes: Well Nourished, No Distress, Calm Cardiovascular: Yes: Regular Rate and Rhythm. No: Gallop, Murmur, Rub Respiratory: Yes: Regular, CTA Bilaterally. No: Rales, Rhonchi, Wheezes Gastrointestinal: Yes: Normal Bowel Sounds, Soft. No: Distention, Tenderness Extremities: Yes: WNL Edema: No Labs: CBC, BMP 06/12/17 06:35 06/10/17 06:10 INR, PTT INR 1.12 (0.82-1.09) 06/09/17 07:00 Problem List - Problems (1) Hematochezia Code(s): K92.1 - MELENA (2) Anemia Code(s): D64.9 - ANEMIA, UNSPECIFIED Qualifiers: Anemia type: other cause Other causes of anemia: acute posthemorrhagic Qualified Code(s): D62 - Acute posthemorrhagic anemia (3) HTN (hypertension) Code(s): I10 - ESSENTIAL (PRIMARY) HYPERTENSION (4) HLD (hyperlipidemia) Code(s): E78.5 - HYPERLIPIDEMIA, UNSPECIFIED (5) TIA (transient ischemic attack) Code(s): G45.9 - TRANSIENT CEREBRAL ISCHEMIC ATTACK, UNSPECIFIED Assessment/Plan (1) Hematochezia Assessment/Plan: -case d/w Dr Lancaster -diverticular bleed -required more blood last night, will need another night stay with repeat cbc in am Code(s): K92.1 - MELENA (2) Anemia Assessment/Plan: -secondary to GI bleed -s/p 3 units, however Hgb did not increase as expected -does not appear to be have brisk bleed (streaks could be from hemorrhoids), but concerning as would expect more increase after transfusion -recheck cbc in am Code(s): D64.9 - ANEMIA, UNSPECIFIED Qualifiers: Anemia type: other cause Other causes of anemia: acute posthemorrhagic Qualified Code(s): D62 - Acute posthemorrhagic anemia (3) HTN (hypertension) Assessment/Plan: -controlled -continue altace Code(s): I10 - ESSENTIAL (PRIMARY) HYPERTENSION (4) HLD (hyperlipidemia) Assessment/Plan: -continue statin Code(s): E78.5 - HYPERLIPIDEMIA, UNSPECIFIED (5) TIA (transient ischemic attack) Assessment/Plan: -hold aggrenox for 10 days secondary to polyp removal Code(s): G45.9 - TRANSIENT CEREBRAL ISCHEMIC ATTACK, UNSPECIFIED Dispo -plan for discharge tomorrow
[2017-06-12] MEDS: ATORVASTATIN CA 10 MG TABLET (FP) PO SCH (21:41)
[2017-06-13] MEDS: ACETAMINOPHEN 325 MG TABLET (FP) PO PRN (06:50)
[2017-06-13 07:33] LABS: BASO % 0.6 % (0-2.0); EOS % 4.1 % (0-4.5); HEMATOCRIT 24.1 % (35.4-49); HEMOGLOBIN 8.2 GM/dL (11.7-16.9); LYMPH % 31.9 % (8-40); MCHC 33.9 g/dl (32.0-35.9); MEAN CELL VOLUME 94.4 fl (80-96); MEAN PLT VOLUME 8.6 fl (7.5-11.1); MONO % 10.5 % (3.8-10.2); NEUT % 52.9 % (42.8-82.8); PLATELET COUNT 125 K/MM3 (134-434); RBC 2.55 M/mm3 (4.00-5.60); RDW 14.8 % (11.9-15.9); WHITE BLOOD COUNT 6.5 K/mm3 (4.0-10.0)
[2017-06-13] MEDS: RAMIPRIL 5 MG CAPSULE (FP) PO SCH (11:01)
[2017-06-13] MEDS: PANTOPRAZOLE SODIUM 40 MG VIAL IVPUSH SCH (11:04)
--- NOTE | 2017-06-13 12:09 | DS ---
Physical Examination Vital Signs: Vital Signs Temperature 37.1 C 06/13/17 10:00 Pulse Rate 59 L 06/13/17 10:00 Respiratory Rate 20 06/13/17 10:00 Blood Pressure 120/59 06/13/17 10:00 O2 Sat by Pulse Oximetry (%) 97 06/12/17 09:00 Constitutional: Yes: No Distress, Calm, Obese Cardiovascular: Yes: Regular Rate and Rhythm. No: Gallop, Murmur, Rub Respiratory: Yes: Regular, CTA Bilaterally. No: Rales, Rhonchi, Wheezes Gastrointestinal: Yes: Normal Bowel Sounds, Soft. No: Distention, Tenderness Extremities: Yes: WNL Edema: No Labs: CBC, BMP 06/13/17 07:05 06/10/17 06:10 Discharge Summary Reason For Visit: HEMORRHAGE Current Active Problems Anemia (Acute) Colon polyps (Acute) Diverticular hemorrhage (Acute) Diverticulosis (Acute) HLD (hyperlipidemia) (Acute) HTN (hypertension) (Acute) Hematochezia (Acute) Rectal bleed (Acute) TIA (transient ischemic attack) (Acute) Hospital Course: Code(s): K92.1 - MELENA (2) Anemia Code(s): D64.9 - ANEMIA, UNSPECIFIED Qualifiers: Anemia type: other cause Other causes of anemia: acute posthemorrhagic Qualified Code(s): D62 - Acute posthemorrhagic anemia (3) HTN (hypertension) Code(s): I10 - ESSENTIAL (PRIMARY) HYPERTENSION (4) HLD (hyperlipidemia) Code(s): E78.5 - HYPERLIPIDEMIA, UNSPECIFIED (5) TIA (transient ischemic attack) Code(s): G45.9 - TRANSIENT CEREBRAL ISCHEMIC ATTACK, UNSPECIFIED Mr Vincent is a very pleasant 81 year old male who comes is with ABLA requiring 3 units pRBCs secondary to diverticular bleed. He was admitted to the hospital and seen by GI. He underwent colonoscopy and was found to have a diverticular bleed. However after the colonoscopy his H/H dropped, most likely from prior bleeding. He received 2 units but did not have the expected response, he received a 3rd unit and improved. He was started on a solid diet and is now having bowel movements that do not contain blood. His H/H is improving. He is safe for discharge home. He is to hold his aggrenox for 10 days before restarting. Patient made aware of holding aggrenox. 31 minutes spent in preparation of this discharge. Condition: Good - Instructions Diet, Activity, Other Instructions: resume previous diet and activity. Hold aggrenox for 10 days, discussed with patient. Follow up with Dr Johnson within 7 days of discharge. Referrals: Antonio Johnson MD [Primary Care Provider] - Elham Lancaster MD [Staff Physician] - Disposition: HOME - Home Medications Comprehensive Discharge Medication List: Ambulatory Orders Aspirin/Dipyridamole [Aggrenox -] 1 combo PO BID 06/08/17 Atorvastatin Ca [Lipitor] 10 mg PO HS 06/08/17 Ramipril 5 mg PO DAILY 06/08/17
--- NOTE | 2017-06-13 13:27 | PN ---
GI Progress Note Subjective: Dr. Smyth for Dr. Lancaster No acute events Mr. Vincent states feeling well. No Overt bleeding. Had a soft brown BM per patient. - Objective Vital Signs: Vital Signs Temperature 98.8 F 06/13/17 10:00 Pulse Rate 59 L 06/13/17 10:00 Respiratory Rate 20 06/13/17 10:00 Blood Pressure 120/59 06/13/17 10:00 O2 Sat by Pulse Oximetry (%) 97 06/12/17 09:00 Constitutional: Calm Cardiovascular: Yes: Murmur. No: Regular Rate and Rhythm Respiratory: Yes: CTA Bilaterally Gastrointestinal Inspection: No: Distention ...Auscultate: Yes: Normoactive Bowel Sounds ...Palpate: No: Hepatomegaly, Splenomegaly ...Percussion: No: Tympanitic Edema: No (No LE edema) Labs: CBC, BMP 06/13/17 07:05 06/10/17 06:10 INR, PTT INR 1.12 (0.82-1.09) 06/09/17 07:00 Problem List - Problems (1) Diverticular hemorrhage Assessment/Plan: No overt bleeding and aggrenox has been held s/p colonoscopy w/ polypectomy per Dr. Lancaster Avoid NSAIDs If remains hemodynamically stabl;e without overt bleeding, no GI objection to d/ c home with f/u w/ Dr. Lancaster Code(s): K57.31 - DVRTCLOS OF LG INT W/O PERFORATION OR ABSCESS W BLEEDING
[2017-06-13 14:02] VITALS: BP 151/70; PULSE 73; TEMP 97.3
== END 2017-06-13 14:46 | disposition home or self-care (01) | DRG 378 ==
LOC: JER 18:05 → JERBED 06-09 01:17 → J5S 06-09 02:46
PROVIDERS: ADMIT Internal Medicine; ATTEND Internal Medicine
PROC: 0DBH8ZX Excision of Cecum, Via Natural or Artificial Opening Endoscopic, Diagnostic (ICD-10-PCS; 2017-06-10)
PROC: 0DBL8ZX Excision of Transverse Colon, Via Natural or Artificial Opening Endoscopic, Diagnostic (ICD-10-PCS; 2017-06-10)
PROC: 0DBN8ZX Excision of Sigmoid Colon, Via Natural or Artificial Opening Endoscopic, Diagnostic (ICD-10-PCS; 2017-06-10)
PROC: 30233H1 Transfusion of Nonautologous Whole Blood into Peripheral Vein, Percutaneous Approach (ICD-10-PCS; 2017-06-10)
PROC: 0W3P8ZZ Control Bleeding in Gastrointestinal Tract, Via Natural or Artificial Opening Endoscopic (ICD-10-PCS; principal; 2017-06-10 11:00)
DX: K57.31 Diverticulosis of large intestine without perforation or abscess with bleeding (principal); I69.354 Hemiplegia and hemiparesis following cerebral infarction affecting left non-dominant side; D12.0 Benign neoplasm of cecum; D12.3 Benign neoplasm of transverse colon; D12.5 Benign neoplasm of sigmoid colon; K64.8 Other hemorrhoids; I10 Essential (primary) hypertension; E78.5 Hyperlipidemia, unspecified; I44.0 Atrioventricular block, first degree; Z87.891 Personal history of nicotine dependence; E66.9 Obesity, unspecified; Z68.29 Body mass index [BMI] 29.0-29.9, adult
CPT/HCPCS: 36415; 36430; 36511; 71010-TC; 74177-TC; 80053; 82272; 83735; 85025; 85027; 85610; 85730; 86850; 86900; 86901; 86922; 88305-TC; 93005; 93010; 99284-25; P9038; P9058

== ENCOUNTER 2021-01-17 07:28 | Day surgery (SDC) | payer OTHER ==
[2021-01-16 12:31] VITALS: BMI 28.1
[2021-01-17] MEDS ORDERED: CYCLOPENTOLATE HCL 1% OPHTH SOLN 2 ML BOTTLE ONE (07:46)
[2021-01-17] MEDS ORDERED: OFLOXACIN 0.3% OPHTHALMIC SOLUTION 5 ML BOTTLE ONE (07:47)
[2021-01-17] MEDS ORDERED: TROPICAMIDE 1% OPHTH SOLN 15 ML BOTTLE ONE (07:47)
[2021-01-17] MEDS ORDERED: PHENYLEPHRINE 2.5% OPHTH SOLN 15 ML BOTTLE ONE (07:47)
[2021-01-17] MEDS ORDERED: KETOROLAC TROMETHAMINE 0.5% EYE DROP 1 DROP DROPS ONE (07:47)
[2021-01-17] MEDS: PHENYLEPHRINE 2.5% OPHTH SOLN 15 ML BOTTLE OS SCH ×4 (07:50→08:05)
[2021-01-17] MEDS: CYCLOPENTOLATE HCL 1% OPHTH SOLN 2 ML BOTTLE OS SCH ×4 (07:50→08:05)
[2021-01-17] MEDS: KETOROLAC TROMETHAMINE 0.5% EYE DROP 1 DROP DROPS OS SCH ×4 (07:50→08:05)
[2021-01-17] MEDS: OFLOXACIN 0.3% OPHTHALMIC SOLUTION 5 ML BOTTLE OS SCH ×4 (07:50→08:05)
[2021-01-17] MEDS: TROPICAMIDE 1% OPHTH SOLN 15 ML BOTTLE OS SCH ×4 (07:50→08:05)
[2021-01-17] MEDS ORDERED: BACITRACIN/POLYMYXIN OPH OINT 3.5 GM TUBE ONE (08:11)
[2021-01-17] MEDS ORDERED: TETRACAINE 0.5% OPHTH SOLN 2 ML BOTTLE ONE (08:11)
[2021-01-17] MEDS ORDERED: EPI-SHUGARCAINE (EPINEPHRINE 0.025% & LIDOCAINE-PF 0.75%) 4ML ONE (08:11)
[2021-01-17] MEDS ORDERED: BETAXOLOL HCL 0.25% OPHTHALMIC 10 ML DROPSBTL ONE (08:11)
[2021-01-17] MEDS ORDERED: BSS (NA/CA/MG/K) BALANCED SALT SOLUTION OPHTH SOLN 15 ML BOTTLE ONE (08:12)
[2021-01-17] MEDS ORDERED: NEO/POLYMYX B SULF/DEXAMETH OPHTHALMIC 5ML BOTTLE ONE (08:12)
[2021-01-17] MEDS ORDERED: POVIDONE-IODINE 5% OPHTHALMIC PREP 30 ML SOLUTION ONE (08:12)
[2021-01-17] MEDS ORDERED: MIDAZOLAM HCL 2 MG/2 ML SINGLE DOSE VIAL ONE (08:54)
[2021-01-17] MEDS ORDERED: ACETAMINOPHEN 325 MG TABLET (FP) PO PRN (09:46)
[2021-01-17 09:57] VITALS: TEMP 98.4
[2021-01-17 10:25] VITALS: BP 133/65; PULSE 66
== END 2021-01-17 10:35 | disposition home or self-care (01) ==
LOC: FASU 07:28
PROVIDERS: ATTEND Ophthalmology
PROC: 08RK3JZ Replacement of Left Lens with Synthetic Substitute, Percutaneous Approach (ICD-10-PCS; principal; 2021-01-17 09:15)
DX: H26.9 Unspecified cataract (principal)

== ENCOUNTER 2021-01-31 06:18 | Day surgery (SDC) | payer OTHER ==
[2021-01-24 12:04] VITALS: BMI 28.1
[2021-01-31] MEDS ORDERED: PHENYLEPHRINE 2.5% OPHTH SOLN 15 ML BOTTLE ONE (06:58)
[2021-01-31] MEDS ORDERED: OFLOXACIN 0.3% OPHTHALMIC SOLUTION 5 ML BOTTLE ONE (06:58)
[2021-01-31] MEDS ORDERED: CYCLOPENTOLATE HCL 1% OPHTH SOLN 2 ML BOTTLE ONE (06:58)
[2021-01-31] MEDS ORDERED: KETOROLAC TROMETHAMINE 0.5% EYE DROP 1 DROP DROPS ONE (06:58)
[2021-01-31] MEDS ORDERED: TROPICAMIDE 1% OPHTH SOLN 15 ML BOTTLE ONE (06:58)
[2021-01-31] MEDS: PHENYLEPHRINE 2.5% OPHTH SOLN 15 ML BOTTLE OD SCH ×5 (07:15→07:35)
[2021-01-31] MEDS: KETOROLAC TROMETHAMINE 0.5% EYE DROP 1 DROP DROPS OD SCH ×5 (07:15→07:35)
[2021-01-31] MEDS: CYCLOPENTOLATE HCL 1% OPHTH SOLN 2 ML BOTTLE OD SCH ×5 (07:15→07:35)
[2021-01-31] MEDS: OFLOXACIN 0.3% OPHTHALMIC SOLUTION 5 ML BOTTLE OD SCH ×5 (07:15→07:35)
[2021-01-31] MEDS: TROPICAMIDE 1% OPHTH SOLN 15 ML BOTTLE OD SCH ×5 (07:15→07:35)
[2021-01-31] MEDS ORDERED: TETRACAINE 0.5% OPHTH SOLN 2 ML BOTTLE ONE (07:18)
[2021-01-31] MEDS ORDERED: BACITRACIN/POLYMYXIN OPH OINT 3.5 GM TUBE ONE (07:18)
[2021-01-31] MEDS ORDERED: BETAXOLOL HCL 0.25% OPHTHALMIC 10 ML DROPSBTL ONE (07:18)
[2021-01-31] MEDS ORDERED: EPI-SHUGARCAINE (EPINEPHRINE 0.025% & LIDOCAINE-PF 0.75%) 4ML ONE (07:18)
[2021-01-31] MEDS ORDERED: EPINEPHrine/PF 1 MG/1 ML (1:1,000) AMPULE ONE (07:18)
[2021-01-31] MEDS ORDERED: POVIDONE-IODINE 5% OPHTHALMIC PREP 30 ML SOLUTION ONE (07:19)
[2021-01-31] MEDS ORDERED: NEO/POLYMYX B SULF/DEXAMETH OPHTHALMIC 5ML BOTTLE ONE (07:19)
[2021-01-31 07:29] VITALS: TEMP 98.5
[2021-01-31] MEDS ORDERED: MIDAZOLAM HCL 2 MG/2 ML SINGLE DOSE VIAL ONE (07:55)
[2021-01-31] MEDS ORDERED: PROPOFOL 20 ML ONE (07:55)
[2021-01-31] MEDS ORDERED: SUCCINYLCHOLINE CHLORIDE 200 MG/10 ML SYRINGE ONE (07:55)
[2021-01-31] MEDS ORDERED: ACETAMINOPHEN 325 MG TABLET (FP) PO PRN (09:12)
[2021-01-31 09:34] VITALS: BP 133/61; PULSE 61
== END 2021-01-31 10:00 | disposition home or self-care (01) ==
LOC: FASU 06:18
PROVIDERS: ATTEND Ophthalmology
PROC: 08RJ3JZ Replacement of Right Lens with Synthetic Substitute, Percutaneous Approach (ICD-10-PCS; principal; 2021-01-31 08:38)
DX: H26.9 Unspecified cataract (principal)

== ENCOUNTER 2021-06-11 12:55 | Inpatient (IN) | payer OTHER ==
[2021-06-11] MEDS ORDERED: KETOROLAC TROMETHAMINE 30 MG/1 ML VIAL IVPUSH ONE (14:38)
[2021-06-11] MEDS ORDERED: SODIUM CHLORIDE 1,000 ML IV STA ×2 (14:38→18:51)
[2021-06-11] MEDS ORDERED: KETOROLAC TROMETHAMINE 30 MG/1 ML VIAL ONE (14:50)
[2021-06-11 14:52] LABS: BASO % 0.3 % (0-2.0); EOS % 0.1 % (0-4.5); HEMATOCRIT 46.6 % (35.4-49); HEMOGLOBIN 15.8 GM/dL (11.7-16.9); MCH 32.8 pg (25.7-33.7); MCHC 33.9 g/dl (32.0-35.9); MEAN CELL VOLUME 96.9 fl (80-96); MEAN PLT VOLUME 7.6 fl (7.5-11.1); MONO % 9.7 % (3.8-10.2); NEUT % 80.9 % (42.8-82.8); PLATELET COUNT 145 10^3/uL (134-434); RBC 4.81 M/mm3 (4.00-5.60); WHITE BLOOD COUNT 13.2 K/mm3 (4.0-10.0)
[2021-06-11 14:57] LABS: EPI CELLS 2 /uL (0-25.1); HYALINE CASTS 1 /uL (0-3.1); PH,URINE 5.5 (5.0-8.0); URINE APPEARANCE CLEAR; URINE BACTERIA 2 /uL (0-1359); URINE BILIRUBIN NEGATIVE (NEGATIVE); URINE COLOR YELLOW; URINE GLUCOSE (UA) NEGATIVE (NEGATIVE); URINE KETONE 1+ (NEGATIVE); URINE LEUK ESTERASE NEGATIVE (NEGATIVE); URINE NITRITE NEGATIVE (NEGATIVE); URINE PROTEIN TRACE (NEGATIVE); URINE RBC 19 /uL (0-23.9); URINE UROBILINOGEN 0.2 mg/dL (0.2-1.0); URINE WBC 7 /uL (0-25.8)
[2021-06-11 15:12] LABS: CALCIUM 9.3 mg/dL (8.5-10.1)
[2021-06-11 15:13] LABS: ALBUMIN 3.9 g/dl (3.4-5.0)
[2021-06-11 15:16] LABS: CREATININE 1.8 mg/dL (0.55-1.3)
[2021-06-11 15:17] LABS: BILIRUBIN,TOTAL 1.2 mg/dL (0.2-1); TOT PROT 7.1 g/dl (6.4-8.2)
[2021-06-11] MEDS ORDERED: TAMSULOSIN HCL 0.4 MG CAP PO ONE ×2 (18:36→22:26)
[2021-06-11] MEDS ORDERED: TAMSULOSIN HCL 0.4 MG CAP ONE (18:59)
[2021-06-11] MEDS ORDERED: morphine SULFATE 4 MG/ML VIAL IVPUSH PRN (19:58)
[2021-06-11] MEDS ORDERED: SODIUM CHLORIDE 1,000 ML IV SCH ×2 (20:00→20:28)
[2021-06-11] MEDS ORDERED: ACETAMINOPHEN 1000 MG/100 ML VIAL IVPB PRN (20:01)
[2021-06-11] MEDS ORDERED: ATORVASTATIN CA 10 MG TABLET (FP) PO SCH (22:00)
[2021-06-11] MEDS ORDERED: HEPARIN NA (PORCINE) 5,000 UNITS/ML 1ML VIAL SQ SCH (22:00)
[2021-06-11] MEDS ORDERED: ASPIRIN/DIPYRIDAMOLE 25 MG/200 MG CAPSULE ONE (22:04)
[2021-06-11] MEDS ORDERED: HEPARIN NA (PORCINE) 5,000 UNITS/ML 1ML VIAL ONE (22:04)
[2021-06-11] MEDS ORDERED: CEFTRIAXONE 1 GM/50 ML BAG ONE (22:05)
[2021-06-11] MEDS: CEFTRIAXONE 1 GM in DEXTROSE 5%-WATER - 50 ML IVPB SCH (22:12)
[2021-06-11] MEDS: ASPIRIN/DIPYRIDAMOLE 25 MG/200 MG CAPSULE PO SCH (22:12)
[2021-06-12 02:56] VITALS: BMI 29.3
[2021-06-12] MEDS: HEPARIN NA (PORCINE) 5,000 UNITS/ML 1ML VIAL SQ SCH ×3 (05:45→21:05)
[2021-06-12 09:06] LABS: BASO % 0.3 % (0-2.0); EOS % 0.4 % (0-4.5); HEMOGLOBIN 13.3 GM/dL (11.7-16.9); LYMPH % 16.1 % (8-40); MCH 33.6 pg (25.7-33.7); MCHC 34.1 g/dl (32.0-35.9); MEAN CELL VOLUME 98.5 fl (80-96); MEAN PLT VOLUME 8.4 fl (7.5-11.1); MONO % 10.8 % (3.8-10.2); NEUT % 72.4 % (42.8-82.8); PLATELET COUNT 130 10^3/uL (134-434); RBC 3.96 M/mm3 (4.00-5.60); WHITE BLOOD COUNT 8.3 K/mm3 (4.0-10.0)
[2021-06-12] MEDS ORDERED: cefTRIAXone SODIUM 1 GM VIAL ONE (09:14)
[2021-06-12] MEDS ORDERED: DEXTROSE 5%-WATER - 50 ML IVPB ONE (09:14)
[2021-06-12] MEDS: CEFTRIAXONE 1 GM in DEXTROSE 5%-WATER - 50 ML IVPB SCH (09:16)
[2021-06-12 09:21] LABS: BLOOD UREA NITROGEN 26.5 mg/dL (7-18); CALCIUM 8.4 mg/dL (8.5-10.1)
[2021-06-12 09:22] LABS: MAGNESIUM 2.4 mg/dL (1.8-2.4)
[2021-06-12 09:24] LABS: CREATININE 1.8 mg/dL (0.55-1.3); PHOSPHOROUS 2.9 mg/dL (2.5-4.9)
[2021-06-12 09:25] LABS: TOT PROT 5.5 g/dl (6.4-8.2)
[2021-06-12 09:28] LABS: ALBUMIN 2.7 g/dl (3.4-5.0)
[2021-06-12] MEDS: ASPIRIN/DIPYRIDAMOLE 25 MG/200 MG CAPSULE PO SCH (10:00)
[2021-06-12] MEDS: SODIUM CHLORIDE 1,000 ML IV SCH ×2 (12:08→23:59)
[2021-06-12] MEDS ORDERED: ACETAMINOPHEN 1000 MG/100 ML VIAL IVPB ONE (20:24)
[2021-06-12] MEDS ORDERED: ATORVASTATIN CA 10 MG TABLET (FP) PO SCH (22:00)
[2021-06-13] MEDS: HEPARIN NA (PORCINE) 5,000 UNITS/ML 1ML VIAL SQ SCH ×3 (05:51→21:27)
[2021-06-13] MEDS ORDERED: DEXTROSE 5%-WATER - 50 ML IVPB ONE (08:01)
[2021-06-13] MEDS ORDERED: cefTRIAXone SODIUM 1 GM VIAL ONE (08:01)
[2021-06-13] MEDS ORDERED: TAMSULOSIN HCL 0.4 MG CAP PO SCH (08:30)
[2021-06-13] MEDS: CEFTRIAXONE 1 GM in DEXTROSE 5%-WATER - 50 ML IVPB SCH (09:41)
[2021-06-13] MEDS: SODIUM CHLORIDE 1,000 ML IV SCH (09:42)
[2021-06-13] MEDS ORDERED: LIDOCAINE HCL/PF 2% SDV 5ML VIAL ONE (14:06)
[2021-06-13] MEDS ORDERED: LIDOCAINE HCL 2% JELLY (5 ML/TUBE) ONE (14:06)
[2021-06-13] MEDS ORDERED: KETAMINE HCL 200 MG/20 ML VIAL ONE (14:08)
[2021-06-13] MEDS ORDERED: PROPOFOL 20 ML ONE ×2 (14:09)
[2021-06-13] MEDS ORDERED: IOHEXOL 180 MG/1 ML ML IJ ONE (14:50)
[2021-06-13] MEDS ORDERED: SODIUM CHLORIDE 1,000 ML IV SCH (15:29)
[2021-06-13] MEDS ORDERED: morphine SULFATE 4 MG/ML VIAL IVPUSH PRN (15:29)
[2021-06-13] MEDS ORDERED: ATORVASTATIN CA 10 MG TABLET (FP) PO SCH (22:00)
[2021-06-13] MEDS ORDERED: ACETAMINOPHEN 325 MG TABLET (FP) PO ONE (23:45)
[2021-06-14] MEDS: HEPARIN NA (PORCINE) 5,000 UNITS/ML 1ML VIAL SQ SCH ×2 (05:43→14:11)
[2021-06-14 08:26] LABS: BASO % 0.6 % (0-2.0); EOS % 2.4 % (0-4.5); HEMATOCRIT 38.9 % (35.4-49); LYMPH % 17.9 % (8-40); MCHC 33.5 g/dl (32.0-35.9); MEAN CELL VOLUME 98.7 fl (80-96); MEAN PLT VOLUME 7.9 fl (7.5-11.1); MONO % 10.6 % (3.8-10.2); NEUT % 68.5 % (42.8-82.8); PLATELET COUNT 149 10^3/uL (134-434); RBC 3.94 M/mm3 (4.00-5.60); RDW 12.8 % (11.9-15.9); WHITE BLOOD COUNT 7.1 K/mm3 (4.0-10.0)
[2021-06-14] MEDS ORDERED: TAMSULOSIN HCL 0.4 MG CAP PO SCH (08:30)
[2021-06-14 09:28] LABS: CALCIUM 8.4 mg/dL (8.5-10.1)
[2021-06-14 09:29] LABS: ALBUMIN 2.6 g/dl (3.4-5.0); BLOOD UREA NITROGEN 14.8 mg/dL (7-18); MAGNESIUM 2.3 mg/dL (1.8-2.4)
[2021-06-14 09:31] LABS: CREATININE 1.2 mg/dL (0.55-1.3); PHOSPHOROUS 3.1 mg/dL (2.5-4.9)
[2021-06-14 09:33] LABS: BILIRUBIN,TOTAL 0.7 mg/dL (0.2-1); TOT PROT 5.6 g/dl (6.4-8.2)
[2021-06-14 13:21] VITALS: BP 132/70; PULSE 69; TEMP 99.3
== END 2021-06-14 16:16 | disposition home or self-care (01) | DRG 661 ==
LOC: JER 12:55 → JERBED 18:48 → J7W 06-12 02:38
PROVIDERS: ADMIT Internal Medicine; ATTEND Internal Medicine
PROC: 0TC68ZZ Extirpation of Matter from Right Ureter, Via Natural or Artificial Opening Endoscopic (ICD-10-PCS; principal; 2021-06-13 14:00)
PROC: 0T768DZ Dilation of Right Ureter with Intraluminal Device, Via Natural or Artificial Opening Endoscopic (ICD-10-PCS; 2021-06-13 14:00)
PROC: BT1DYZZ Fluoroscopy of Right Kidney, Ureter and Bladder using Other Contrast (ICD-10-PCS; 2021-06-13 14:00)
DX: N13.2 Hydronephrosis with renal and ureteral calculous obstruction (principal); N17.9 Acute kidney failure, unspecified; I10 Essential (primary) hypertension; E78.5 Hyperlipidemia, unspecified; N28.1 Cyst of kidney, acquired; K59.00 Constipation, unspecified; I45.10 Unspecified right bundle-branch block; R91.1 Solitary pulmonary nodule
CPT/HCPCS: 36415; 74176-TC; 76000-TC-FY; 76775-TC; 76856-TC; 80053; 81003; 82962; 83690; 83735; 84100; 85025; 87040; 87086; 93005; 93010; 94010; 94760; 99285-25; C9803; J0131; U0003; U0005

== ENCOUNTER 2022-05-23 04:24 | Day surgery (SDC) | payer OTHER ==
[2022-05-23] MEDS ORDERED: ONDANSETRON 4 MG/2 ML VIAL ONE (13:25)
[2022-05-23] MEDS ORDERED: LIDOCAINE HCL/PF 2% SDV 5ML VIAL ONE (13:25)
[2022-05-23] MEDS ORDERED: PROPOFOL 20 ML ONE (13:25)
[2022-05-23] MEDS ORDERED: DEXAMETHASONE SOD PHOSPHATE 4 MG/1 ML VIAL ONE (13:25)
[2022-05-23] MEDS ORDERED: ceFAZolin SODIUM 1 GM VIAL IVPB ONE (13:34)
[2022-05-23] MEDS ORDERED: ceFAZolin SODIUM 1 GM VIAL ONE (13:34)
[2022-05-23] MEDS ORDERED: ONDANSETRON 4 MG/2 ML VIAL IVPUSH PRN (13:56)
[2022-05-23] MEDS ORDERED: oxyCODONE HCL 5 MG TABLET PO PRN (13:56)
[2022-05-23] MEDS ORDERED: LACTATED RINGERS SOLUTION 1,000 ML IV SCH (14:00)
[2022-05-23] MEDS ORDERED: ACETAMINOPHEN 1000 MG/100 ML BAG IVPB ONE (14:33)
[2022-05-23 17:13] VITALS: RESP 20; TEMP 97.6
[2022-05-23 17:16] VITALS: BP 169/70; PULSE 54
[2022-05-30 15:08] LABS: CA OXALATE MONOHYDR. 50 % (.); SIZE 2x2 mm (.); WEIGHT 5 mg (.)
== END 2022-05-23 17:00 | disposition home or self-care (01) ==
LOC: JASU-SURG 04:24
PROVIDERS: ATTEND Urology
PROC: 0TC68ZZ Extirpation of Matter from Right Ureter, Via Natural or Artificial Opening Endoscopic (ICD-10-PCS; principal; 2022-05-23 12:00)
PROC: 0T768DZ Dilation of Right Ureter with Intraluminal Device, Via Natural or Artificial Opening Endoscopic (ICD-10-PCS; 2022-05-23 12:00)
DX: N13.1 Hydronephrosis with ureteral stricture, not elsewhere classified (principal); N20.1 Calculus of ureter
CPT/HCPCS: 36415; 76000-TC-FY; 82360; 88300-TC; 94760; C1758; C2617

== ENCOUNTER 2022-07-31 04:05 | Day surgery (SDC) | payer OTHER ==
[2022-07-26 12:04] VITALS: BMI 30.2
[2022-07-31] MEDS ORDERED: PROPOFOL 20 ML ONE (09:29)
[2022-07-31] MEDS ORDERED: MIDAZOLAM HCL 2 MG/2 ML SINGLE DOSE VIAL ONE (09:29)
[2022-07-31] MEDS ORDERED: ceFAZolin SODIUM 1 GM VIAL IVPB ONE (09:35)
[2022-07-31] MEDS ORDERED: ceFAZolin SODIUM 1 GM VIAL ONE (09:35)
[2022-07-31 10:17] VITALS: RESP 18
[2022-07-31 11:58] VITALS: BP 137/73; PULSE 70; TEMP 98.8
== END 2022-07-31 12:00 | disposition home or self-care (01) ==
LOC: JASU-SURG 04:05
PROVIDERS: ATTEND Urology
PROC: 0TF6XZZ Fragmentation in Right Ureter, External Approach (ICD-10-PCS; principal; 2022-07-31 09:00)
DX: N20.0 Calculus of kidney (principal)

== ENCOUNTER 2022-08-16 16:51 | Observation (INO) | payer OTHER ==
[2022-08-16] MEDS ORDERED: ACETAMINOPHEN 1000 MG/100 ML BAG IVPB ONE (17:25)
[2022-08-16] MEDS ORDERED: morphine CARPU-JECT 2 MG/1 ML DISP.SYRIN IVPUSH ONE (17:25)
[2022-08-16] MEDS ORDERED: ACETAMINOPHEN INJECTION 100 ML IVPB ONE (17:30)
[2022-08-16 18:24] LABS: BASO % 0.2 % (0-2.0); EOS % 0.7 % (0-4.5); HEMATOCRIT 43.6 % (35.4-49); HEMOGLOBIN 14.8 GM/dL (11.7-16.9); LYMPH % 10.3 % (8-40); MCH 32.9 pg (25.7-33.7); MCHC 33.8 g/dl (32.0-35.9); MEAN CELL VOLUME 97.3 fl (80-96); MEAN PLT VOLUME 7.9 fl (7.5-11.1); MONO % 6.2 % (3.8-10.2); NEUT % 82.6 % (42.8-82.8); PLATELET COUNT 184 10^3/uL (134-434); RBC 4.48 M/mm3 (4.00-5.60); RDW 13.1 % (11.9-15.9); WHITE BLOOD COUNT 10.8 K/mm3 (4.0-10.0)
[2022-08-16 18:30] LABS: INR 1.03 (0.83-1.09)
[2022-08-16] MEDS ORDERED: PROPOFOL 20 ML ONE (18:36)
[2022-08-16] MEDS ORDERED: KETAMINE HCL 200 MG/20 ML VIAL ONE (18:36)
[2022-08-16 18:42] LABS: CALCIUM 9.7 mg/dL (8.5-10.1)
[2022-08-16 18:43] LABS: BLOOD UREA NITROGEN 24.3 mg/dL (7-18)
[2022-08-16] MEDS ORDERED: morphine CARPU-JECT 4 MG/1 ML DISP.SYRIN IVPUSH ONE (18:44)
[2022-08-16 18:46] LABS: CREATININE 1.2 mg/dL (0.55-1.3)
[2022-08-16 18:47] LABS: BILIRUBIN,TOTAL 0.8 mg/dL (0.2-1)
[2022-08-16 18:48] LABS: TOT PROT 7.1 g/dl (6.4-8.2)
[2022-08-16] MEDS ORDERED: KETAMINE HCL 200 MG/20 ML VIAL IVPUSH ONE (20:07)
[2022-08-16] MEDS ORDERED: PROPOFOL 200 MG/20 ML VIAL IVPUSH ONE (20:07)
[2022-08-17 04:29] VITALS: BMI 31.0
[2022-08-17] MEDS ORDERED: ACETAMINOPHEN 1000 MG/100 ML BAG IVPB ONE (06:00)
[2022-08-17] MEDS ORDERED: oxyCODONE HCL 5 MG TABLET PO PRN (08:24)
[2022-08-17] MEDS: ASPIRIN/DIPYRIDAMOLE 25 MG/200 MG CAPSULE PO SCH ×2 (09:30→21:16)
[2022-08-17] MEDS: ENOXAPARIN NA (PORCINE) 40 MG/0.4 ML DISP.SYRIN SQ SCH ×2 (09:30→09:45)
[2022-08-17] MEDS: RAMIPRIL 5 MG CAPSULE PO SCH (09:30)
[2022-08-17 09:41] LABS: BASO % 0.3 % (0-2.0); HEMATOCRIT 38.3 % (35.4-49); LYMPH % 16.6 % (8-40); MCH 32.5 pg (25.7-33.7); MCHC 33.9 g/dl (32.0-35.9); MEAN CELL VOLUME 95.9 fl (80-96); MEAN PLT VOLUME 7.7 fl (7.5-11.1); MONO % 12.7 % (3.8-10.2); NEUT % 69.4 % (42.8-82.8); PLATELET COUNT 161 10^3/uL (134-434); RBC 3.99 M/mm3 (4.00-5.60); RDW 13.1 % (11.9-15.9); WHITE BLOOD COUNT 7.7 K/mm3 (4.0-10.0)
[2022-08-17 09:58] LABS: CALCIUM 8.7 mg/dL (8.5-10.1)
[2022-08-17 09:59] LABS: ALBUMIN 3.3 g/dl (3.4-5.0); BLOOD UREA NITROGEN 21.7 mg/dL (7-18); MAGNESIUM 2.3 mg/dL (1.8-2.4)
[2022-08-17 10:03] LABS: TOT PROT 5.8 g/dl (6.4-8.2)
[2022-08-17] MEDS ORDERED: ACETAMINOPHEN 325 MG TABLET (FP) PO PRN ×2 (10:30)
[2022-08-17] MEDS ORDERED: SODIUM CHLORIDE NASAL SPRAY 44 ML BOTTLE NS PRN (11:31)
[2022-08-17] MEDS: INSULIN SLIDING SCALE (NOVOLOG) 1 VIAL SQ SCH ×3 (11:48→21:45)
[2022-08-17] MEDS ORDERED: ATORVASTATIN CA 10 MG TABLET (FP) PO SCH (22:00)
[2022-08-17 22:24] VITALS: RESP 18
[2022-08-17 23:11] LABS: EPI CELLS 5 /uL (0-25.1); HYALINE CASTS 3 /uL (0-3.1); URINE APPEARANCE CLOUDY; URINE BACTERIA 1 /uL (0-1359); URINE BILIRUBIN NEGATIVE (NEGATIVE); URINE COLOR YELLOW; URINE GLUCOSE (UA) NEGATIVE (NEGATIVE); URINE KETONE TRACE (NEGATIVE); URINE LEUK ESTERASE TRACE (NEGATIVE); URINE NITRITE NEGATIVE (NEGATIVE); URINE PROTEIN 1+ (NEGATIVE); URINE UROBILINOGEN 0.2 mg/dL (0.2-1.0); URINE WBC 96 /uL (0-25.8)
[2022-08-18] MEDS: INSULIN SLIDING SCALE (NOVOLOG) 1 VIAL SQ SCH ×2 (06:01→11:05)
[2022-08-18] MEDS: RAMIPRIL 5 MG CAPSULE PO SCH (09:28)
[2022-08-18] MEDS: ENOXAPARIN NA (PORCINE) 40 MG/0.4 ML DISP.SYRIN SQ SCH (09:28)
[2022-08-18] MEDS: ASPIRIN/DIPYRIDAMOLE 25 MG/200 MG CAPSULE PO SCH (09:28)
[2022-08-18 10:05] VITALS: BP 142/78; PULSE 70; TEMP 98.1
[2022-08-18 10:40] LABS: HEMATOCRIT 38.2 % (35.4-49); MCH 32.6 pg (25.7-33.7); MEAN CELL VOLUME 96.1 fl (80-96); PLATELET COUNT 165 10^3/uL (134-434); RBC 3.98 M/mm3 (4.00-5.60); RDW 13.1 % (11.9-15.9); WHITE BLOOD COUNT 6.8 K/mm3 (4.0-10.0)
[2022-08-18 10:56] LABS: BLOOD UREA NITROGEN 20.1 mg/dL (7-18)
[2022-08-18 10:57] LABS: CALCIUM 8.7 mg/dL (8.5-10.1); MAGNESIUM 2.2 mg/dL (1.8-2.4)
[2022-08-18 10:59] LABS: PHOSPHOROUS 2.7 mg/dL (2.5-4.9)
== END 2022-08-18 11:30 ==
LOC: JER 16:51 → JERBED 08-17 00:30 → J5S 08-17 03:32
PROVIDERS: ADMIT Internal Medicine; ATTEND Internal Medicine
PROC: 0RSJXZZ Reposition Right Shoulder Joint, External Approach (ICD-10-PCS; principal; 2022-08-17)
PROC: 3E023GC Introduction of Other Therapeutic Substance into Muscle, Percutaneous Approach (ICD-10-PCS; 2022-08-17)
PROC: 3E033NZ Introduction of Analgesics, Hypnotics, Sedatives into Peripheral Vein, Percutaneous Approach (ICD-10-PCS; 2022-08-17)
PROC: 3E033GC Introduction of Other Therapeutic Substance into Peripheral Vein, Percutaneous Approach (ICD-10-PCS; 2022-08-17)
DX: S43.004A Unspecified dislocation of right shoulder joint, initial encounter (principal); W18.39XA Other fall on same level, initial encounter; Y93.89 Activity, other specified; Y92.410 Unspecified street and highway as the place of occurrence of the external cause; I10 Essential (primary) hypertension; K92.2 Gastrointestinal hemorrhage, unspecified; E78.00 Pure hypercholesterolemia, unspecified; Z86.73 Personal history of transient ischemic attack (TIA), and cerebral infarction without residual deficits; D64.9 Anemia, unspecified; E66.8 Other obesity; Z68.31 Body mass index [BMI] 31.0-31.9, adult; Z87.891 Personal history of nicotine dependence; Z86.718 Personal history of other venous thrombosis and embolism; Z88.8 Allergy status to other drugs, medicaments and biological substances
CPT/HCPCS: 0241U-QW; 36415; 73030-TC-RT-FY; 80048; 80053; 81003; 82962; 83036; 83735; 84100; 85025; 85027; 85610; 86850; 86900; 86901; 93005; 93010; 94010; 94761; 96374; 96375; 96376; 97116-GP; 97161-GP; 99285-25; G0378

== ENCOUNTER 2022-12-06 19:22 | Inpatient (IN) | payer OTHER ==
[2022-12-06 21:02] LABS: BASO % 0.8 % (0-2.0); EOS % 3.2 % (0-4.5); HEMATOCRIT 42.7 % (35.4-49); HEMOGLOBIN 14.2 GM/dL (11.7-16.9); LYMPH % 39.2 % (8-40); MCH 31.3 pg (25.7-33.7); MCHC 33.3 g/dl (32.0-35.9); MEAN CELL VOLUME 93.9 fl (80-96); MEAN PLT VOLUME 8.1 fl (7.5-11.1); MONO % 9.6 % (3.8-10.2); NEUT % 47.2 % (42.8-82.8); PLATELET COUNT 159 10^3/uL (134-434); RBC 4.55 M/mm3 (4.00-5.60); RDW 14.4 % (11.9-15.9); WHITE BLOOD COUNT 6.7 K/mm3 (4.0-10.0)
[2022-12-06 21:08] LABS: INR 1.03 (0.83-1.09); PROTHROMBIN TIME (PATIENT) 11.9 SEC (9.7-13.0)
[2022-12-06 21:11] LABS: ACTIVATED PTT 26.7 SECONDS (25.2-36.5)
[2022-12-06 21:26] LABS: ALBUMIN 3.8 g/dl (3.4-5.0); CALCIUM 9.3 mg/dL (8.5-10.1)
[2022-12-06 21:27] LABS: BLOOD UREA NITROGEN 25.8 mg/dL (7-18)
[2022-12-06 21:29] LABS: CREATININE 1.1 mg/dL (0.55-1.3)
[2022-12-06 21:31] LABS: BILIRUBIN,TOTAL 0.5 mg/dL (0.2-1); TOT PROT 6.8 g/dl (6.4-8.2)
[2022-12-06 21:52] LABS: PH,URINE 5.5 (5.0-8.0); URINE APPEARANCE CLEAR; URINE BILIRUBIN NEGATIVE (NEGATIVE); URINE COLOR YELLOW; URINE GLUCOSE (UA) TRACE (NEGATIVE); URINE KETONE NEGATIVE (NEGATIVE); URINE LEUK ESTERASE NEGATIVE (NEGATIVE); URINE NITRITE NEGATIVE (NEGATIVE); URINE PROTEIN NEGATIVE (NEGATIVE); URINE UROBILINOGEN 0.2 mg/dL (0.2-1.0)
[2022-12-06] MEDS ORDERED: LACTATED RINGERS SOLUTION 1,000 ML/1,000 ML INFUS.BAG IV SCH (23:45)
[2022-12-07] MEDS: ACETAMINOPHEN 1000 MG/100 ML BAG IVPB PRN ×2 (00:45→10:52)
[2022-12-07] MEDS ORDERED: RAMIPRIL 5 MG CAPSULE PO SCH ×4 (01:00→10:00)
[2022-12-07] MEDS ORDERED: RAMIPRIL 5 MG CAPSULE PO ONE (02:00)
[2022-12-07 04:15] VITALS: BMI 29.8
[2022-12-07] MEDS: INSULIN SLIDING SCALE (NOVOLOG) 1 VIAL SQ SCH ×3 (06:29→16:41)
[2022-12-07 06:48] LABS: HEMATOCRIT 40.2 % (35.4-49); HEMOGLOBIN 14.1 GM/dL (11.7-16.9); MCH 32.7 pg (25.7-33.7); MEAN CELL VOLUME 93.3 fl (80-96); MEAN PLT VOLUME 8.4 fl (7.5-11.1); PLATELET COUNT 156 10^3/uL (134-434); RBC 4.32 M/mm3 (4.00-5.60); RDW 14.2 % (11.9-15.9); WHITE BLOOD COUNT 5.7 K/mm3 (4.0-10.0)
[2022-12-07 07:06] LABS: POTASSIUM 3.7 mmol/L (3.5-5.1)
[2022-12-07 07:08] LABS: ALBUMIN 3.6 g/dl (3.4-5.0); CALCIUM 9.1 mg/dL (8.5-10.1)
[2022-12-07 07:09] LABS: BLOOD UREA NITROGEN 20.6 mg/dL (7-18)
[2022-12-07 07:13] LABS: BILIRUBIN,TOTAL 0.7 mg/dL (0.2-1); TOT PROT 6.5 g/dl (6.4-8.2)
[2022-12-07] MEDS ORDERED: ASPIRIN/DIPYRIDAMOLE 25 MG/200 MG CAPSULE PO SCH (10:00)
[2022-12-07] MEDS: ENOXAPARIN NA (PORCINE) 40 MG/0.4 ML DISP.SYRIN SQ SCH ×2 (10:52→10:57)
[2022-12-07 11:52] VITALS: RESP 18
[2022-12-07 14:49] VITALS: BP 114/71; PULSE 56; TEMP 98.6
[2022-12-07] MEDS ORDERED: ATORVASTATIN CA 10 MG TABLET (FP) PO SCH (22:00)
[2022-12-07] MEDS ORDERED: ATORVASTATIN CA 40 MG TABLET (FP) PO SCH (22:00)
== END 2022-12-07 17:04 | disposition home or self-care (01) | DRG 69 ==
LOC: JER 19:22 → JERBED 22:42 → OBSVTOIN 23:29 → J4W 12-07 00:12
PROVIDERS: ADMIT Internal Medicine; ATTEND Internal Medicine
DX: G45.9 Transient cerebral ischemic attack, unspecified (principal); I10 Essential (primary) hypertension; E78.5 Hyperlipidemia, unspecified; E11.9 Type 2 diabetes mellitus without complications; Z86.73 Personal history of transient ischemic attack (TIA), and cerebral infarction without residual deficits
CPT/HCPCS: 36415; 70450-TC; 71045-TC-FY; 80053; 80061; 81003; 82553; 82962; 83036; 84439; 84443; 85025; 85027; 85610; 85730; 86850; 86900; 86901; 87635; 93005; 93010; 93306-TC; 93880-TC; 97116-GP; 97161-GP; 99285-25; G0378